=== PATIENT | female | born 1950 | race Caucasian/White ===

== ENCOUNTER → 2023-10-16 12:18 | Outpatient (REF) | payer MEDICARE, SELFPAY | LOC: RAD 12:18 | PROVIDERS: ATTENDING PHYSICIAN Internal Medicine Rheumatology; FAMILY PHYSICIAN Student in an Organized Health Care Education/Training Program | DX: M41.9 Scoliosis, unspecified (principal); M54.9 Dorsalgia, unspecified; M81.0 Age-related osteoporosis without current pathological fracture | CPT/HCPCS: 72072; 72110 ==

== ENCOUNTER → 2024-03-14 09:29 | Outpatient (REF) | payer MEDICARE, SELFPAY | LOC: WDC 09:29 | PROVIDERS: ATTENDING PHYSICIAN Obstetrics & Gynecology; FAMILY PHYSICIAN Student in an Organized Health Care Education/Training Program | DX: N64.4 Mastodynia (principal) | CPT/HCPCS: 76642; 77062; 77066 ==

== ENCOUNTER 2024-05-03 07:57 | Emergency (ER) | payer MEDICARE, SELFPAY ==
[2024-05-03 08:02] VITALS: BP 137/89
[2024-05-03 08:15] VITALS: BP 137/89; BMI 28.3
[2024-05-03 09:00] VITALS: BP 129/81
[2024-05-03] MEDS: DILAUDID 0.25 MG IV (09:57)
[2024-05-03 10:00] VITALS: BP 141/86
[2024-05-03 10:00] LABS: % Basophils 0.5 % (0-2); % Eosinophils 3.6 % (0-6); % Immature Granulocytes 0.2 % (0-0.5); % Lymphocytes 22.1 % (20.5-51.1); % Monocytes 8.5 % (1.7-9.3); % Neutrophils 65.1 % (42.2-75.2); Absolute Eosinophils 0.2 10^3/uL (0-0.7); Absolute Lymphocytes 1.2 10^3/uL (1.2-3.4); Absolute Monocytes 0.5 10^3/uL (0.1-0.6); Absolute Neutrophils 3.6 10^3/uL (1.4-6.5); Hematocrit 42.5 % (37.0-47.0); Hemoglobin 14.6 g/dL (12.0-16.0); Mean Corp Hgb Conc. 34.4 g/dL (33.0-37.0); Mean Corpuscular Volume 81.4 fL (81.0-99.0); Mean Platelet Volume 9.4 fL (7.4-10.4); Nucleated Red Blood Cells % 0 %; Platelet Count 268 10^3/uL (130-400); Red Blood Cell Count 5.22 10^6/uL (4.20-5.40); Red Cell Dist. Width 13.5 % (11.5-14.5); White Blood Cell Count 5.5 10^3/uL (4.8-10.8)
--- NOTE | 2024-05-03 10:00 | ED.GENMED ---
History of Present Illness
General
Chief Complaint: Musculo-Skeletal Complaint
Source: patient
Exam Limitations: none
Time Seen by Provider: 05/03/24 09:04
Nursing documentation reviewed up to this point in time: agreed with
History of Present Illness
History of Present Illness:
73 y/o F with h/o HTN, scoliosis, chronic back pain
Presents for left-sided flank and thoracic back pain after a fall yesterday. Patient says she went out side to let her dog out and the dog took off causing her to fall backwards onto her shoulder and left side. It took her some time to get up but
she was able to get up on her own and ambulate back into the house. She initially just had some shoulder discomfort but that resolved. She quickly started having left-sided back pain. She was still able to walk around. Use lidocaine patches last
night and needed help getting up her flight of steps to her bed. This morning she had extreme difficulty with any movement and feels that the pain is much worse. Is not radiating down her leg and is not associated with any numbness tingling
weakness or incontinence. She has never had pain like this before. Any change in position is severe. She did not take any medications, she does not tolerate narcotics very well because she does not like the way they make her feel. She is not on
any blood thinners, denies loss of consciousness, headache, neck pain, chest pain, pleuritic pain or rib pain. Her urine was not grossly bloody this morning
Past History
Past History
ED Past Medical History: HTN and Other (Scoliosis)
Social History
Tobacco: Non-smoker
Living: with family
Review of Systems
Review of Systems
Allergies reviewed?: Yes
All Other Systems: Not applicable
Phy Exam
Physical Exam
Physical Exam:
GENERAL: Alert , very uncomfortable
HEAD: NCAT
NECK: no midline tenderness, active ROM intact, no paraspinal muscle tenderness;
EYE: pupils equal and reactive, EOMs intact.
ENT: o/p clr, mmm. no hemotympanum
CARDIAC: Regular rate and rhythm, no edema
LUNGS: Clear breath sounds bilaterally, no acute respiratory distress, no wheezes/rales/rhonchi
ABDOMEN: Soft, without focal tenderness, no r/g,
back: scoliosis
very severe tenderness L thoracic back, L cva region, seems to have STS L flank
NEUROLOGICAL: Alert and oriented, no focal neuro deficits, CN intact, 5/5 strength, sensation intact
SKIN: Warm and dry,
MUSCULOSKELETAL: No edema, well perfused.
PSYCH: Normal and appropriate interaction.
Course
Orders/Labs/Results
Orders:
Orders
05/03/24 09:41
CT Abd/Pel (IV only)-[facility] only Urgent
Comment:
Reason For Exam: severe L flank pain, lower thoracic pain after fal
05/03/24 09:42
Cardiac Monitoring- Treatment ONCE
HYDROmorphone [Dilaudid] 0.25 mg IV NOW STA
05/03/24 09:49
Complete Blood Count/With Diff Urgent
Comprehensive Metabolic Panel Urgent
Urinalysis Reflex To Culture Urgent
Date Specimen was Collected: 05/03/24
Time Specimen was Collected: 09:45
05/03/24 11:50
Ketorolac [Toradol] 15 mg IV NOW STA
05/03/24 11:57
0.9% Sodium Chloride 1000 ml [Nss] 1,000 ml IV BOLUS
05/03/24 12:59
Hydrocodone 5/APAP 325 [[place] 5/325] 1 tablet PO NOW STA
Abnormal Lab Results
05/03/24
09:49
Sodium 148 H mmol/L
(135-145)
05/03/24 09:49
05/03/24 09:49
Vital Signs
Initial and Last Documented VS:
Initial Vital Signs
BP
137/89
05/03/24 08:02
Last Documented Vital Signs
Temp Pulse Resp BP Pulse Ox
98.5 F 82 16 136/71 99
05/03/24 13:57 05/03/24 13:57 05/03/24 13:57 05/03/24 13:57 05/03/24 13:57
MDM/Problems Addressed
Differential Diagnosis Includes:
retroperitoneal hem, compression fx, radiculopahty, msk pain
MDM/Problems Addressed:
73 y/o F
chronic back pain/scoliosis here with L back pain after fall onto L zoe yesterday
was initially able to get up but then has had severe pain with movement otday
nonradicular
no weakness
no red flag symptoms
no thinners
pt has not tried anything for pain
doesn't tolerate meds well
on exam L cva tenderness
severe pain with movement
no weakness/numbness
no signs cauda equina
will eval with CT
pain meds
CT neg for acute injury
some incidentals discussed
ambulated to bathroom with minimal assistance
concerned about her not tolerating pain when pain meds wear off
no contraindiection to low dose ibuprofen -UNCLEAR WHY IT SAYS SHE HAS ALLERGY; PT DENIES AND SAYS NO REACTIONS AND SHE HAS NEVER BEEN TOLD THIS
will recommend that 2 times a day
pt will try vicodin for sever epain
constipation precautions
pt stable for d/c
*Critical Care Note
Total Time (30-74mins, 75-104mins- exclusive of procedures): Not Applicable
ED Attending Note
-
Portions of this chart may have been created with voice recognition software.� Occasional wrong word or��sound alike� substitutions may have occurred due to the inherent limitations of voice recognition software.
Discharge Plan
Departure
Patient Disposition: Home (Routine Discharge)
Date of Disposition: 05/03/24
Time of Disposition: 12:55
Patient with high blood pressure during this ER visit?: No
Condition: Fair
Covid-19: Not Applicable
Discharge Problem:
Back pain, Scoliosis
Instructions: Muscle Strain (DC)
Prescriptions:
New
hydrocodone-acetaminophen 5-325 mg tablet
1 tab PO Q8H PRN (Reason: Pain) Qty: 12 0RF
ibuprofen 400 mg tablet
400 mg PO Q8H PRN (Reason: Pain) Qty: 20 0RF
No Action
multivitamin 1 EACH tablet
1 ea PO DAILY
atorvastatin 10 MG tablet
10 mg PO DAILY
amlodipine 10 MG tablet
10 mg PO DAILY
cholecalciferol (vitamin D3) 2,000 UNITS tablet
2,000 units PO DAILY
L.acidoph, paracasei,B. lactis 1 EACH capsule
1 ea PO DAILY
Referrals:
Tiffani Velez MD [Family Provider] - Follow up in 2-3 days
Activity Restrictions/Additional Instructions:
Your back pain is likely from pulled muscles or bruising from the trauma. Your CAT scan did not show any new fractures but you have severe scoliosis and some degenerative changes that are chronic.
Try ibuprofen 400 mg 2-3 times a day with food for the next 3 to 4 days in a row. This is an anti-inflammatory and it will help your muscle pain.
If your pain is more severe you could use a Vicodin 1 tablet every 8 hours as needed. This does have a dose of Tylenol in it so be aware of that. If your pain is more mild you could use Tylenol instead of the Vicodin. While on Vicodin you should
be on a stool softener like Metamucil or Colace. These are [id number].
You can apply ice or heat alternating. Use lidocaine patches 12 hours on, 12 hours off. You can ice and heat when the patches are not on.
Please follow-up with your family doctor this week. Use a cane or a walker as needed to help you. Return for numbness tingling or weakness down your leg, fever or chills, severe pain, peeing blood or any concern
Interventions
Interventions:
*Risk Screen - Suicide Last Done: 05/03/24 08:15
*General Assessment Last Done: 05/03/24 08:15
*Neglect/Abuse Screening Last Done: 05/03/24 08:15
ED- Fall Risk Assessment Last Done: 05/03/24 08:15
*ED COVID-19 Vaccine History Last Done: 05/03/24 08:15
*Nursing Disposition Last Done: 05/03/24 13:57
ED-Musculoskeletal Assessment Last Done: 05/03/24 08:15
Discharge Date and Time
Discharge Date/Time: 05/03/24 13:58
Print Language: [place]
[2024-05-03 10:15] LABS: ALT (SGPT) 31 U/L (0-35); AST (SGOT) 34 U/L (14-36); Albumin 4.8 g/dl (3.5-5.0); Alkaline Phosphatase 122 U/L (38-126); Blood Urea Nitrogen 17 mg/dl (7-17); Calcium 9.6 mg/dl (8.4-10.2); Carbon Dioxide 23 mmol/L (22-30); Chloride 107 mmol/L (98-107); Estimated Creatinine Clearance 51 ml/min; Glucose 97 mg/dl (70-99); Potassium 3.8 mmol/L (3.5-5.1); Sodium 148 mmol/L (135-145); Total Bilirubin 0.9 mg/dl (0.2-1.3); Total Protein 7.3 g/dl (6.3-8.2); eGFR > 60.00
[2024-05-03 10:26] VITALS: BP 141/86
[2024-05-03] MEDS: NSS 1000 IV (11:55)
[2024-05-03] MEDS: TORADOL 15 MG IV (11:55)
[2024-05-03 12:25] LABS: Urine Albumin Negative (Neg - Trace); Urine Bilirubin Negative (Negative); Urine Character Clear (Clear); Urine Color Straw; Urine Glucose Negative (Negative); Urine Ketone Negative (Negative); Urine Leukocyte Negative (Negative); Urine Nitrite Negative (Negative); Urine Occult Blood Negative (Negative); Urine Specific Gravity 1.005 (<1.030); Urine Urobilinogen Negative (Neg - 1+)
[2024-05-03] MEDS: NORCO 5/325 1 TABLET PO (13:10)
[2024-05-03 13:57] VITALS: BP 136/71
== END 2024-05-03 13:58 | disposition home or self-care (01) ==
LOC: EMR 07:57
PROVIDERS: Physician Assistant; EMERGENCY PHYSICIAN Student in an Organized Health Care Education/Training Program; FAMILY PHYSICIAN Student in an Organized Health Care Education/Training Program
DX: M54.9 Dorsalgia, unspecified (principal); M41.9 Scoliosis, unspecified; I10 Essential (primary) hypertension
CPT/HCPCS: 99284; 74177; 80053; 81003; 85025; Q9967

== ENCOUNTER → 2025-05-15 14:01 | Outpatient (REF) | payer MEDICARE, SELFPAY | LOC: WDC 14:01 | PROVIDERS: ATTENDING PHYSICIAN Obstetrics & Gynecology; FAMILY PHYSICIAN Student in an Organized Health Care Education/Training Program | DX: Z12.31 Encounter for screening mammogram for malignant neoplasm of breast (principal) | CPT/HCPCS: 77063; 77067 ==

== ENCOUNTER → 2025-06-16 09:20 | Outpatient (REF) | payer MEDICARE, SELFPAY | LOC: RAD 09:20 | PROVIDERS: ATTENDING PHYSICIAN Student in an Organized Health Care Education/Training Program | DX: M81.0 Age-related osteoporosis without current pathological fracture (principal); Z87.39 Personal history of other diseases of the musculoskeletal system and connective tissue | CPT/HCPCS: 77080 ==